=== PATIENT | male | born 1995 | race Native Hawaiian/Other Pacific Islander ===

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

== ENCOUNTER 2017-04-07 13:18 | Emergency (ER) | payer OTHER ==
[~2017-04-07] VITALS: Ht 177.8 cm; Wt 93.5 kg
[~2017-04-07 13:18] MED LIST: CETI10TA84 PO; EMTR200C4 PO; HYDR1CAP85 PO; LISI5TAB PO; LORA-741 PO; LTHSR/300 PO; LURA40TA PO; PRAZ1CAP10 PO; PRT/20 PO; SERT1TAB68 PO
[2017-04-07 13:21] VITALS: TEMP 36.7; Ht 177.8 cm; Wt 93.5 kg
[2017-04-07] MEDS ORDERED: SODIUM CHLORIDE 0.9% 1000ML 1,000 ML IV STA (13:38)
[2017-04-07 13:41] LABS: URINE APPEARANCE CLEAR (CLEAR); URINE BILIRUBIN NEG (NEG); URINE COLOR YELLOW; URINE NITRITE NEG (NEG); URINE PH 6.5 (4.5-7.5); URINE SPECIFIC GRAVITY 1.018 (1.000-1.030); UROBILINOGEN NEG (NEG); ZZUR CULT IF INDIC CLEAN CATCH NO
[2017-04-07 13:45] LABS: MANUAL MICROSCOPIC REQUIRED? NO; REVIEW REQ? NO
[2017-04-07] MEDS ORDERED: OPTIRAY 320 IV PRN (13:45)
[2017-04-07] MEDS ORDERED: TRAZ50TA35 PO (13:59)
[2017-04-07 14:10] LABS: BASO % 0.2 %; BASO ABS # 0.02 K/uL (0-0.2); COMPLETE YES; HEMATOCRIT 44.4 % (42-52); IG% 0.4 %; LYMPH % 25.1 %; LYMPH ABS # 2.01 K/uL (1.2-3.4); MEAN CELL VOLUME 83.5 fL (80-100); MEAN CORPUSCULAR HEMOGLOBIN 28.9 pg (25-34); MEAN CORPUSCULAR HGB CONC 34.7 g/dl (32-36); MEAN PLATELET VOLUME 9.3 fL (7.4-10.4); MONO % 7.7 %; NEUT % 61.6 %; PLATELET COUNT 243 K/uL (130-400); RED BLOOD COUNT 5.32 M/uL (4.7-6.1); WHITE BLOOD COUNT 8.02 K/uL (4.8-10.8)
[2017-04-07 14:28] LABS: BUN/CREATININE RATIO 13.3 (10-20); CALCIUM 9.3 mg/dl (8.5-10.1); CREATININE 0.86 mg/dl (0.60-1.40); POTASSIUM 4.2 mmol/L (3.5-5.1)
[2017-04-07 14:31] LABS: ALB/GLOB RATIO 1.2 (0.9-2)
--- NOTE | 2017-04-07 15:09 | DIAGNOSTIC IMAGING REPORT ---
GALLBLADDER-ABD LIMITED CLINICAL HISTORY: 22 years-old Male presenting with Right upper quadrant abdominal pain, and right flank pain. TECHNIQUE: Real-time grayscale and limited color Doppler ultrasound imaging of the abdomen limited to the right upper quadrant was performed. COMPARISON: 12/15/2016. FINDINGS: Pancreas: Obscured due to overlying bowel gas. Liver: Normal echogenicity and echotexture. The liver measures 15.6 cm in maximal sagittal dimension. No sonographic evidence of hepatic mass. Main portal vein patent with normal directional flow. Biliary: No intrahepatic biliary ductal dilatation. Common bile duct measures up to 4 mm in diameter. Gallbladder: 5 mm nonshadowing isoechoic focus at the gallbladder fundus consistent with polyp. Several additional similar-appearing foci. Right kidney: Normal in appearance and size. No hydronephrosis. Ascites: None. IMPRESSION: 1. No evidence of cholelithiasis or cholecystitis. 2. Gallbladder polyps measuring up to 5 mm. These are most likely cholesterol polyps. Electronically signed by: Luis Carlos Pierce M.D. 04/07/2017 3:08 PM Dictated Date/Time: 04/07/2017 3:05 PM
[2017-04-07] MEDS ORDERED: MoRPHine SULFATE 4 MG/ML 1 ML CARP\\VIAL IV STA (15:23)
[2017-04-07] MEDS ORDERED: ONDANSETRON INJ 2 MG/ML 2 ML VIAL IV STA (15:23)
--- NOTE | 2017-04-07 16:33 | DIAGNOSTIC IMAGING REPORT ---
ABD/PELVIS IV AND ORAL CONT CLINICAL HISTORY: 22 years-old Male presenting with Right flank/upper and lower quadrant pain. TECHNIQUE: Multidetector CT of the abdomen and pelvis was performed after the administration of oral and intravenous contrast. IV contrast: 115 mL Optiray 320. A dose lowering technique was used consistent with the principles of ALARA (as low as reasonably achievable). COMPARISON: 12/15/2016. CT DOSE (mGy.cm): The estimated cumulative dose is 623.95 mGycm. FINDINGS: Solid Fiber Paster Operator topogram: Unremarkable. Lung bases: Minimal dependent opacities likely atelectasis. Normal heart size. No pericardial or pleural effusion. Liver: Normal morphology. No liver lesion. Patent hepatic vasculature. Biliary: No intrahepatic or extrahepatic biliary ductal dilatation. Normal gallbladder. Pancreas: Normal. Spleen: Mildly enlarged measuring 13.7 cm in maximal sagittal dimension. This has decreased since the prior exam, when the spleen measured 15.6 cm in maximal sagittal dimension. Adrenal glands: Normal. Kidneys and ureters: No nephrolithiasis. No hydronephrosis. Gastrointestinal tract: Normal appendix. No bowel obstruction. Peritoneal cavity: No free fluid or intraperitoneal gas. Bladder: Distended. Pelvic organs: Normal. Vasculature: Aorta and IVC patent and normal in caliber. Lymph nodes: No enlarged lymph nodes in the abdomen or pelvis. Abdominal wall: Normal. Musculoskeletal: Prominent Schmorl's node noted at the superior endplate of L5. Osseous structures otherwise normal. IMPRESSION: 1. Decreasing splenomegaly, which is now mild. This favors a prior infectious etiology such as mononucleosis. No lymphadenopathy to support a diagnosis of lymphoproliferative disease. 2. No acute intra-abdominal pathology. Electronically signed by: Luis Carlos Pierce M.D. 04/07/2017 4:31 PM Dictated Date/Time: 04/07/2017 4:26 PM
[2017-04-07] MEDS ORDERED: HYDR-5688 PO (17:17)
--- NOTE | 2017-04-07 17:18 | EMERGENCY ROOM VISIT NOTE ---
History First contact with patient: 13:27 Chief Complaint: FLANK PAIN Stated Complaint: RIGHT SIDE PAIN AND STOMACH PAIN History of Present Illness The patient is a 22 year old male who presents to the Emergency Room via private vehicle accompanied by female with complaints of "right side pain and stomach pain". The patient states that he was diagnosed with mono in December or January, and has had persistent right flank pain since then. He states that over the past 2-3 weeks the right upper quadrant and right flank pain has worsened. He now rates the pain as a 6/10 and up to an 8/10. He states it is worse with bending over, and eating. He states that cold compresses to the region make the pain better. He has associated nausea. He denies any history of kidney stones, fevers, chills, vomiting, diarrhea or constipation. He has a history of [place] Parkinson White. Review of Systems A complete 10-point Review of Systems was discussed with the patient, with pertinent positives and negatives listed in the History of Present Illness. All remaining Review of Systems questions can be considered negative unless otherwise specified. Past Medical/Surgical History Medical Problems: (1) No chronic problems Surgical Problems: (1) History of tonsillectomy and adenoidectomy Family History No pertinent family history Social History Smoking Status: Never Smoker Drug Use: none Marital Status: single Occupation Status: employed Current/Historical Medications Scheduled Cetirizine (Zyrtec), 10 MG PO HS Lisinopril (Prinivil), 5 MG PO DAILY [place] Carbonate ([place] Carbonate), 300 MG PO QAM [place] Carbonate ([place] Carbonate), 900 MG PO QPM Lurasidone Hcl (Latuda), 40 MG PO HS Pantoprazole (Protonix), 20 MG PO DAILY Prazosin Hcl (Prazosin), 3 MG PO HS Sertraline Hcl (Zoloft), 100 MG PO HS Trazodone Hcl (Trazodone), 50-100 MG PO HS Scheduled PRN Hydrocodone/Acetaminophen 5MG/325MG ([place] 5MG/325MG), 1-2 TABLET PO Q6 PRN for Pain Hydroxyzine Pamoate (Vistaril), 25-50 MG PO HS PRN for Sleep Lorazepam (Ativan), 0.5 MG PO Q6H PRN for . Physical Exam Vital Signs Date Time Temp Pulse Resp B/P (MAP) Pulse Ox O2 Delivery O2 Flow Rate FiO2 8/2/17 17:42 62 18 132/70 97 04/07/17 16:36 63 16 130/77 98 Room Air 04/07/17 14:58 56 16 126/78 99 Room Air 04/07/17 13:21 36.7 98 18 146/93 98 Room Air Physical Exam VITAL SIGNS - Vital signs and nursing notes were reviewed. Patient is afebrile , hypertensive at 146/93, nontoxic tachycardic and is saturating well on room air 98%. GENERAL -22-year-old male appearing his stated age who is in no acute distress. Communicates well with provider and answers questions appropriately. SKIN - Without rashes. No petechial rashes. HEAD - NC/AT. EYES - Sclera anicteric. EARS - No deformities of external structures noted on gross examination bilaterally. NOSE - Midline and without cyanosis. No epistaxis or purulent drainage noted. MOUTH/OROPHARYNX - Without perioral cyanosis. LUNGS - Chest wall symmetric without accessory muscle use, intercostals retractions, or central cyanosis. Normal vesicular breath sounds CTA B/L. No wheezes, rales, or rhonchi appreciated. CARDIAC - RRR with S1/S2. No murmur, rubs, or gallops appreciated. ABDOMEN - Abdominal contour without pulsations or visible masses. BS normoactive all four quadrants. There is right upper quadrant tenderness, with positive Machado sign. Minimal right flank tenderness with CVA positive. No palpable masses, hepatosplenomegaly, or ascites noted. EXTREMITIES - No clubbing or peripheral cyanosis. No pretibial edema present. +5 /5 strength noted in UE/LE bilaterally. NEUROLOGIC - Cranial nerves II through XII grossly intact. PSYCH - A&O. Pt is very pleasant and interacts well with examiner. Medical Decision & Procedures ER Provider Diagnostic Interpretation: ABD/PELVIS IV AND ORAL CONT CLINICAL HISTORY: 22 years-old Male presenting with Right flank/upper and lower quadrant pain. TECHNIQUE: Multidetector CT of the abdomen and pelvis was performed after the administration of oral and intravenous contrast. IV contrast: 115 mL Optiray 320. A dose lowering technique was used consistent with the principles of ALARA (as low as reasonably achievable). COMPARISON: 12/15/2016. CT DOSE (mGy.cm): The estimated cumulative dose is 623.95 mGycm. FINDINGS: Virtual Customer Assistant topogram: Unremarkable. Lung bases: Minimal dependent opacities likely atelectasis. Normal heart size. No pericardial or pleural effusion. Liver: Normal morphology. No liver lesion. Patent hepatic vasculature. Biliary: No intrahepatic or extrahepatic biliary ductal dilatation. Normal gallbladder. Pancreas: Normal. Spleen: Mildly enlarged measuring 13.7 cm in maximal sagittal dimension. This has decreased since the prior exam, when the spleen measured 15.6 cm in maximal sagittal dimension. Adrenal glands: Normal. Kidneys and ureters: No nephrolithiasis. No hydronephrosis. Gastrointestinal tract: Normal appendix. No bowel obstruction. Peritoneal cavity: No free fluid or intraperitoneal gas. Bladder: Distended. Pelvic organs: Normal. Vasculature: Aorta and IVC patent and normal in caliber. Lymph nodes: No enlarged lymph nodes in the abdomen or pelvis. Abdominal wall: Normal. Musculoskeletal: Prominent Schmorl's node noted at the superior endplate of L5. Osseous structures otherwise normal. IMPRESSION: 1. Decreasing splenomegaly, which is now mild. This favors a prior infectious etiology such as mononucleosis. No lymphadenopathy to support a diagnosis of lymphoproliferative disease. 2. No acute intra-abdominal pathology. Electronically signed by: Luis Carlos Pierce M.D. 04/07/2017 4:31 PM Dictated Date/Time: 04/07/2017 4:26 PM GALLBLADDER-ABD LIMITED CLINICAL HISTORY: 22 years-old Male presenting with Right upper quadrant abdominal pain, and right flank pain. TECHNIQUE: Real-time grayscale and limited color Doppler ultrasound imaging of the abdomen limited to the right upper quadrant was performed. COMPARISON: 12/15/2016. FINDINGS: Pancreas: Obscured due to overlying bowel gas. Liver: Normal echogenicity and echotexture. The liver measures 15.6 cm in maximal sagittal dimension. No sonographic evidence of hepatic mass. Main portal vein patent with normal directional flow. Biliary: No intrahepatic biliary ductal dilatation. Common bile duct measures up to 4 mm in diameter. Gallbladder: 5 mm nonshadowing isoechoic focus at the gallbladder fundus consistent with polyp. Several additional similar-appearing foci. Right kidney: Normal in appearance and size. No hydronephrosis. Ascites: None. IMPRESSION: 1. No evidence of cholelithiasis or cholecystitis. 2. Gallbladder polyps measuring up to 5 mm. These are most likely cholesterol polyps. Electronically signed by: Luis Carlos Pierce M.D. 04/07/2017 3:08 PM Dictated Date/Time: 04/07/2017 3:05 PM Laboratory Results 04/07/17 13:55 Red Blood Count 5.32, Mean Corpuscular Volume 83.5, Mean Corpuscular Hemoglobin 28.9, Mean Corpuscular Hemoglobin Concent 34.7, Mean Platelet Volume 9.3, Neutrophils (%) (Auto) 61.6, Lymphocytes (%) (Auto) 25.1, Monocytes (%) (Auto) 7.7, Eosinophils (%) (Auto) 5.0, Basophils (%) (Auto) 0.2, Neutrophils # (Auto) 4.94, Lymphocytes # (Auto) 2.01, Monocytes # (Auto) 0.62, Eosinophils # (Auto) 0.40, Basophils # (Auto) 0.02 04/07/17 13:55 Test 04/07/17 13:25 04/07/17 13:55 Urine Color YELLOW Urine Appearance CLEAR (CLEAR) Urine pH 6.5 (4.5-7.5) Urine Specific [place] 1.018 (1.000-1.030) Urine Protein NEG (NEG) Urine Glucose (UA) NEG (NEG) Urine Ketones NEG (NEG) Urine Occult Blood NEG (NEG) Urine Nitrite NEG (NEG) Urine Bilirubin NEG (NEG) Urine Urobilinogen NEG (NEG) Urine Leukocyte Esterase NEG (NEG) White Blood Count 8.02 K/uL (4.8-10.8) Red Blood Count 5.32 M/uL (4.7-6.1) Hemoglobin 15.4 g/dL (14.0-18.0) Hematocrit 44.4 % (42-52) Mean Corpuscular Volume 83.5 fL (80-100) Mean Corpuscular Hemoglobin 28.9 pg (25-34) Mean Corpuscular Hemoglobin Concent 34.7 g/dl (32-36) Platelet Count 243 K/uL (130-400) Mean Platelet Volume 9.3 fL (7.4-10.4) Neutrophils (%) (Auto) 61.6 % Lymphocytes (%) (Auto) 25.1 % Monocytes (%) (Auto) 7.7 % Eosinophils (%) (Auto) 5.0 % Basophils (%) (Auto) 0.2 % Neutrophils # (Auto) 4.94 K/uL (1.4-6.5) Lymphocytes # (Auto) 2.01 K/uL (1.2-3.4) Monocytes # (Auto) 0.62 K/uL (0.11-0.59) Eosinophils # (Auto) 0.40 K/uL (0-0.5) Basophils # (Auto) 0.02 K/uL (0-0.2) RDW Standard Deviation 40.1 fL (36.4-46.3) RDW Coefficient of Variation 13.3 % (11.5-14.5) Immature Granulocyte % (Auto) 0.4 % Immature Granulocyte # (Auto) 0.03 K/uL (0.00-0.02) Anion Gap 4.0 mmol/L (3-11) Est Creatinine Clear Calc Drug Dose 157.4 ml/min Estimated GFR () 144.7 Estimated GFR (Non- 124.8 BUN/Creatinine Ratio 13.3 (10-20) Calcium Level 9.3 mg/dl (8.5-10.1) Total Bilirubin 0.3 mg/dl (0.2-1) Aspartate Amino Transf (AST/SGOT) 14 U/L (15-37) Alanine Aminotransferase (ALT/SGPT) 38 U/L (12-78) Alkaline Phosphatase 84 U/L (45-117) Total Protein 7.3 gm/dl (6.4-8.2) Albumin 4.0 gm/dl (3.4-5.0) Globulin 3.3 gm/dl (2.5-4.0) Albumin/Globulin Ratio 1.2 (0.9-2) Monoscreen NEG (NEG) Medications Administered Medications (Trade) Dose Ordered Sig/Alejandro Route Start Time Stop Time Status Last Admin Dose Admin Sodium Chloride 1,000 ml @ 999 mls/hr Q1H1M STAT IV 04/07/17 13:38 04/07/17 14:38 DC 04/07/17 13:56 999 MLS/HR Morphine Sulfate (MoRPHine SULFATE INJ) 4 mg NOW STAT IV 04/07/17 15:23 04/07/17 15:24 DC 04/07/17 15:23 4 MG Ondansetron HCl (Zofran Inj) 4 mg NOW STAT IV 04/07/17 15:23 04/07/17 15:24 DC 04/07/17 15:23 4 MG Medical Decision Patient was seen and evaluated as above. After obtaining a thorough history and physical examination IV access was initiated, and the above workup was performed. He presents to us today with right upper quadrant pain, and positive Machado sign on examination. Ultrasound of the right upper quadrant does reveal a small polyp, no other emergent process. Benefits versus risk of obtaining CT scan was discussed with the patient, and this was pursued. CBC reveals no leukocytosis or anemia. Chem panel reveals AST low at 14, no other abnormality is noted. Urine is negative. [place] is negative. Patient this time appears to be stable for outpatient management. No acute processes and find on examination, blood work, vital signs, or imaging. He was given [place] for his pain. He was checked in the [employer] drug monitoring system, and there were no red flags were identified. He is to follow-up with his family doctor regarding today's visit. He was educated upon worrisome symptoms which to return, had questions answered, and was discharged home in condition. In evaluation treatment this patient following differential diagnoses were entertained: Constipation, cholecystitis, choledocholithiasis, RI, PE, among others. Impression Primary Impression: Right flank pain Departure Information Dispostion Home / Self-Care Condition GOOD Prescriptions Hydrocodone/Acetaminophen 5MG/325MG ([place] 5MG/325MG) Tab 1-2 TABLET PO Q6 Y for Pain, #15 TAB For Initial Treatment Prov: Hudson Kim PA-C 04/07/17 Referrals Israel Gramajo III, M.D. (PCP) Patient Instructions My [facility] Additional Instructions You have been treated in the Emergency Department your Abdominal Pain. Laboratory results and imaging studies have ruled out any emergent causes for your abdominal pain which would warrant admission or surgery. You have been prescribed [place] to be used for pain control. This is a narcotic medication. You cannot drive or consume alcohol while on this medicine. This medicine should only be used for pain that cannot be controlled with over-the- counter pain medicines. For pain control, you can use the following [id number] medicines (if >12 yo): - Regular strength (325mg/tab) Tylenol (acetaminophen) 2 tabs every 4-6 hours as needed. Do not exceed 12 tablets in a 24 hour period. Avoid taking more than 3 grams (3000 mg) of Tylenol per day. This includes any other sources of acetaminophen you may take on a regular basis. DO NOT TAKE WITH THE [place]!!! - Regular strength (200 mg/tab) Advil (ibuprofen) 1-2 tabs every 4-6 hours as needed. Do not exceed a dose of 3200 mg per day. Drink plenty of water and stay well hydrated. As with any trip to the Emergency Department, you should follow-up with your Primary Care Provider from today's visit. Return to the emergency department if your symptoms persist despite treatment plan outlined above or if the following symptoms occur: increased fevers, chills , worsening nausea/vomiting, blood in your stool or urine. Please follow-up regarding the ultrasound results listed below as we discussed. Please return to the emergency department with any new/concerning symptoms. GALLBLADDER-ABD LIMITED CLINICAL HISTORY: 22 years-old Male presenting with Right upper quadrant abdominal pain, and right flank pain. TECHNIQUE: Real-time grayscale and limited color Doppler ultrasound imaging of the abdomen limited to the right upper quadrant was performed. COMPARISON: 12/15/2016. FINDINGS: Pancreas: Obscured due to overlying bowel gas. Liver: Normal echogenicity and echotexture. The liver measures 15.6 cm in maximal sagittal dimension. No sonographic evidence of hepatic mass. Main portal vein patent with normal directional flow. Biliary: No intrahepatic biliary ductal dilatation. Common bile duct measures up to 4 mm in diameter. Gallbladder: 5 mm nonshadowing isoechoic focus at the gallbladder fundus consistent with polyp. Several additional similar-appearing foci. Right kidney: Normal in appearance and size. No hydronephrosis. Ascites: None.
[2017-04-07 17:42] VITALS: BP 132/70; PULSE 62; O2SAT 97
== END 2017-04-07 17:43 | disposition home or self-care (01) ==
LOC: C.EDB 13:21 → C.EDC 17:43
DX: R10.9 Unspecified abdominal pain (principal); R11.0 Nausea; Z79.899 Other long term (current) drug therapy; Z86.19 Personal history of other infectious and parasitic diseases